=== PATIENT | female | born 1975 | race Caucasian/White ===

== ENCOUNTER 2017-09-13 11:51 | Emergency (ER) | payer OTHER ==
[2017-09-13 12:06] VITALS: TEMP 98.7
[2017-09-13] MEDS ORDERED: Sodium Chloride 0.9% 1,000 ML IV STA (12:06)
[2017-09-13 12:39] LABS: ALB/GLOB RATIO 1.4 (1.1-1.8); ALKALINE PHOSPHATASE 50 U/L (38-126); ALT/SGPT 33 U/L (7-56); AST/SGOT 24 U/L (14-36); BILIRUBIN,TOTAL 0.7 mg/dL (0.2-1.3); BLOOD UREA NITROGEN 14 mg/dL (7-21); CALCIUM 9.8 mg/dL (8.4-10.5); CARBON DIOXIDE 25 mmol/L (21-33); CHLORIDE 107 mmol/L (98-107); GFR AFRICAN-AMERICAN > 60; GLUCOSE,RANDOM 121 mg/dL (70-110); LIPASE 83 U/L (23-300); POTASSIUM 3.6 mmol/L (3.6-5.0); SODIUM 143 mmol/L (132-148); TOTAL PROTEIN 7.8 g/dL (5.8-8.3)
[2017-09-13 12:43] LABS: BASO # 0.05 K/mm3 (0.0-2.0); BASO % 0.6 % (0.0-3.0); EOS % 0.5 % (1.5-5.0); GRAN # 6.58 (1.4-6.5); HEMATOCRIT 39.9 % (36.0-48.0); LYMPH # 1.1 (1.2-3.4); LYMPH % 13.5 % (22.0-35.0); MEAN CELL VOLUME 95.5 fl (80.0-105.0); MEAN CORPUSCULAR HEMOGLOBIN 31.3 pg (25.0-35.0); MEAN CORPUSCULAR HGB CONC 32.8 g/dl (31.0-37.0); MONO # 0.3 (0.1-0.6); MONO % 3.4 % (1.0-6.0); RED CELL DISTRIBUTION WIDTH 12.6 % (11.5-14.5)
[2017-09-13 12:44] LABS: URINE BILIRUBIN NEGATIVE (NEGATIVE); URINE BLOOD LARGE (NEGATIVE); URINE GLUCOSE (UA) NEGATIVE (NEGATIVE); URINE KETONE NEGATIVE (NEGATIVE); URINE LEUKOCYTE ESTERASE NEGATIVE Leu/uL (NEGATIVE); URINE PROTEIN 100 mg/dL (<30 mg/dL)
[2017-09-13 12:46] LABS: URINE APPEARANCE SL CLOUDY (CLEAR); URINE COLOR YELLOW (YELLOW)
--- NOTE | 2017-09-13 12:51 | ED PDOC ---
Arrival/HPI - General Chief Complaint: Back Pain Time Seen by Provider: 09/13/17 12:01 Historian: Patient - History of Present Illness Narrative History of Present Illness (Text): 09/13/17 12:50 A 42 year old female presents to the emergency department complaining of right sided flank pain, nausea and vomiting. Patient reports flank pain radiates to her lower abdomen. Patient denies any other complaints at this time. Symptom Onset: Sudden Symptom Course: Unchanged Activities at Onset: Rest Context: Home Past Medical History - Provider Review Nursing Documentation Reviewed: Yes - Cardiac Hx Cardiac Disorders: Yes ("heart condition", unable to specify) - Pulmonary Hx Respiratory Disorders: No - Neurological Hx Neurological Disorder: No - HEENT Hx HEENT Disorder: No - Renal Hx Renal Disorder: No - Endocrine/Metabolic Hx Endocrine Disorders: No - Hematological/Oncological Hx Blood Disorders: No - Integumentary Hx Dermatological Disorder: No - Musculoskeletal/Rheumatological Hx Musculoskeletal Disorders: No Hx Arthritis: No - Gastrointestinal Hx Gastrointestinal Disorders: No - Genitourinary/Gynecological Hx Genitourinary Disorders: No - Psychiatric Hx Psychophysiologic Disorder: No Hx Substance Use: No Family/Social History - Physician Review Nursing Documentation Reviewed: Yes Family/Social History: No Known Family HX Smoking Status: Never Smoked Hx Alcohol Use: No Hx Substance Use: No Allergies/Home Meds Allergies/Adverse Reactions: Allergies No Known Allergies Allergy (Verified 04/01/17 15:46) Review of Systems - Physician Review All systems were reviewed & negative as marked: Yes - Review of Systems Gastrointestinal: Abdominal Pain (lower), Nausea, Vomiting Musculoskeletal: Other (R sided flank pain) Physical Exam Vital Signs Reviewed: Yes Vital Signs Temp Pulse Resp BP Pulse Ox 09/13/17 16:04 74 17 108/68 98 09/13/17 13:23 78 17 114/72 100 09/13/17 12:06 98.7 F 72 16 143/80 100 Temperature: Afebrile Blood Pressure: Normal Pulse: Regular Respiratory Rate: Normal Appearance: Positive for: Well-Appearing, Non-Toxic, Comfortable Pain Distress: Mild Mental Status: Positive for: Alert and Oriented X 3 - Systems Exam Head: Present: Atraumatic, Normocephalic Pupils: Present: PERRL Extroacular Muscles: Present: EOMI Conjunctiva: Present: Normal Mouth: Present: Moist Mucous Membranes Neck: Present: Normal Range of Motion Respiratory/Chest: Present: Clear to Auscultation, Good Air Exchange. No: Respiratory Distress, Accessory Muscle Use Cardiovascular: Present: Regular Rate and Rhythm, Normal S1, S2. No: Murmurs Abdomen: Present: Tenderness (R flank), Normal Bowel Sounds, Other (lower abdominal pain b/l). No: Distention, Peritoneal Signs Back: Present: Other (R flank tenderness) Upper Extremity: Present: Normal Inspection. No: Cyanosis, Edema Lower Extremity: Present: Normal Inspection. No: Edema Neurological: Present: GCS=15, CN II-XII Intact, Speech Normal Skin: Present: Warm, Dry, Normal Color. No: Rashes Psychiatric: Present: Alert, Oriented x 3, Normal Insight, Normal Concentration Medical Decision Making ED Course and Treatment: 09/13/17 12:48 Impression: A 42 year old female with right sided flank pain, lower abdominal pain, nausea and vomiting. Differential Diagnosis included but are not limited to: kidney stones vs. pyelonephritis vs. appendicitis vs. gastritis Plan: -- CT abd/pelvis -- labs -- Urinalysis -- IV fluids, Toradol, Zofran -- Reassess and disposition Progress Notes: 09/13/17 13:52 CT Abdomen and Pelvis without intravenous contrast Creator : Justin Subramanian MD FINDINGS: LOWER THORAX: Unremarkable. LIVER: Unremarkable. No gross lesion or ductal dilatation. GALLBLADDER AND BILE DUCTS: Unremarkable. PANCREAS: Unremarkable. No gross lesion or ductal dilatation. SPLEEN: Unremarkable. ADRENALS: Unremarkable. No mass. KIDNEYS AND URETERS: There is a 3 mm right UVJ stone. There is moderate to severe hydronephrosis and hydroureter on the right. Axial image 150 series 2 and coronal image 47. VASCULATURE: Unremarkable. No aortic aneurysm. BOWEL: Unremarkable. No obstruction. No gross mural thickening. APPENDIX: Unremarkable. Normal appendix. PERITONEUM: Unremarkable. No free fluid. No free air. LYMPH NODES: Unremarkable. No enlarged lymph nodes. BLADDER: Unremarkable. REPRODUCTIVE: Unremarkable. BONES: No acute fracture. IMPRESSION: There is a 3 mm right UVJ stone. There is moderate to severe hydronephrosis and hydroureter on the right 09/13/17 14:00 On reevaluation, patient still with persistent pain. Will give more pain medications. 09/13/17 15:43 Patient feels better and is in no acute distress. Discussed results and plan with patient. Patient understands results and is agreeable with plan to be discharged home. All questions answered. Patient is stable for discharge. - Lab Interpretations Lab Results: 09/13/17 11:21 09/13/17 11:21 Lab Results 09/13/17 12:35: Urine Color Yellow, Urine Appearance Sl cloudy, Urine pH 6.0, Ur Specific [place] >= 1.030, Urine Protein 100 H, Urine Glucose (UA) Negative, Urine Ketones Negative, Urine Blood Large H, Urine Nitrate Negative, Urine Bilirubin Negative, Urine Urobilinogen 1.0 H, Ur Leukocyte Esterase Negative, Urine RBC 25 - 30, Urine WBC 1 - 3, Ur Epithelial Cells 4 - 5, Amorphous Sediment Few, Urine Bacteria Many, Urine Other Uyeast, Urine HCG, Qual Negative 09/13/17 11:21: Sodium 143, Potassium 3.6, Chloride 107, Carbon Dioxide 25, Anion Gap 15, BUN 14, Creatinine 0.7, Est GFR ( Amer) > 60, Est GFR (Non- Af Amer) > 60, Random Glucose 121 H, Calcium 9.8, Total Bilirubin 0.7, AST 24, ALT 33, Alkaline Phosphatase 50, Total Protein 7.8, Albumin 4.5, Globulin 3.3, Albumin/Globulin Ratio 1.4, Lipase 83 09/13/17 11:21: WBC 8.0, RBC 4.18, Hgb 13.1, Hct 39.9, MCV 95.5, MCH 31.3, MCHC 32.8, RDW 12.6, Plt Count 238, MPV 9.0, Gran % 82.0 H, Lymph % (Auto) 13.5 L, Roberts % (Auto) 3.4, Eos % (Auto) 0.5 L, Baso % (Auto) 0.6, Gran # 6.58 H, Lymph # 1.1 L, Roberts # 0.3, Eos # 0.0, Baso # 0.05 I have reviewed the lab results: Yes - RAD Interpretation Radiology Orders: 09/13/17 12:07 ABD & PELVIS W/O PO OR IV CONT [CT] Stat - Medication Orders Current Medication Orders: Discontinued Medications Hydromorphone HCl (Dilaudid) 1 mg IVP STAT STA Stop: 09/13/17 14:11 Last Admin: 09/13/17 14:15 Dose: 1 mg MAR Pain Assessment Document 09/13/17 14:15 OCS (Rec: 09/13/17 14:16 OCS [id number]) Pain Reassessment Is this a pain reassessment? Yes Sleep Is patient sleeping during reassessment? No Presence of Pain Presence of Pain Yes Pain Scale Used Pain Scale Used Numeric Location Left, Right or Bilateral Right Description Description Constant Pain Behavior Moaning Crying Guarding IVP Administration Document 09/13/17 14:15 OCS (Rec: 09/13/17 14:16 OCS [id number]) Charges for Administration # of IVP Administrations 1 Sodium Chloride (Sodium Chloride 0.9%) 1,000 mls @ 100 mls/hr IV .Q10H STA Stop: 09/13/17 22:05 Last Admin: 09/13/17 12:39 Dose: 100 mls/hr eMAR Start Stop Document 09/13/17 12:39 OCS (Rec: 09/13/17 12:40 OCS [id number]) Intravenous Solution Start Date 09/13/17 Start Time 12:40 Ketorolac Tromethamine (Toradol) 30 mg IVP STAT STA Stop: 09/13/17 12:07 Last Admin: 09/13/17 12:39 Dose: 30 mg MAR Pain Assessment Document 09/13/17 12:39 OCS (Rec: 09/13/17 12:39 OCS [id number]) Pain Reassessment Is this a pain reassessment? Yes Sleep Is patient sleeping during reassessment? No Presence of Pain Presence of Pain Yes Pain Scale Used Pain Scale Used Numeric Location Left, Right or Bilateral Right Description Description Constant Intensity of Pain at present 10 IVP Administration Document 09/13/17 12:39 OCS (Rec: 09/13/17 12:39 OCS [id number]) Charges for Administration # of IVP Administrations 1 Ondansetron HCl (Zofran Inj) 4 mg IVP STAT STA Stop: 09/13/17 12:07 Last Admin: 09/13/17 12:39 Dose: 4 mg IVP Administration Document 09/13/17 12:39 OCS (Rec: 09/13/17 12:39 OCS [id number]) Charges for Administration # of IVP Administrations 1 - Scribe Statement The provider has reviewed the documentation as recorded by the Scribe Krishna Barnes All medical record entries made by the Scribe were at my direction and personally dictated by me. I have reviewed the chart and agree that the record accurately reflects my personal performance of the history, physical exam, medical decision making, and the department course for this patient. I have also personally directed, reviewed, and agree with the discharge instructions and disposition. Disposition/Present on Arrival - Present on Arrival Any Indicators Present on Arrival: No History of DVT/PE: No History of Uncontrolled Diabetes: No Urinary Catheter: No History of Decub. Ulcer: No History Surgical Site Infection Following: None - Disposition Have Diagnosis and Disposition been Completed?: Yes Diagnosis: Kidney stone Disposition: HOME/ ROUTINE Disposition Time: 16:10 Condition: IMPROVED Discharge Instructions (ExitCare): Kidney Stones (ED) Prescriptions: Ondansetron ODT [Zofran ODT] 4 mg PO TID PRN 7 Days #12 odt PRN Reason: Nausea/Vomiting oxyCODONE/Acetaminophen [Percocet 5/325 mg Tab] 1 ea PO TID PRN #15 tab PRN Reason: Pain, Moderate (4-7) Tamsulosin HCl [Flomax] 0.4 mg PO DAILY #15 cap.er.24h Forms: [facility] ([place]an)
[2017-09-13 13:24] VITALS: RESP 17
[2017-09-13 13:31] LABS: URINE AMORPHOUS SEDIMENT FEW; URINE BACTERIA MANY (NEG); URINE RBC 25 - 30 /hpf (0-2)
--- NOTE | 2017-09-13 13:50 | CT ---
PROCEDURE: CT Abdomen and Pelvis without intravenous contrast HISTORY: kidney stones COMPARISON: None. TECHNIQUE: Without contrast.. Contrast Dose: Radiation dose: Total exam DLP = 318 mGy-cm. This CT exam was performed using one or more of the following dose reduction techniques: Automated exposure control, adjustment of the mA and/or kV according to patient size, and/or use of iterative reconstruction technique. FINDINGS: LOWER THORAX: Unremarkable. LIVER: Unremarkable. No gross lesion or ductal dilatation. GALLBLADDER AND BILE DUCTS: Unremarkable. PANCREAS: Unremarkable. No gross lesion or ductal dilatation. SPLEEN: Unremarkable. ADRENALS: Unremarkable. No mass. KIDNEYS AND URETERS: There is a 3 mm right UVJ stone. There is moderate to severe hydronephrosis and hydroureter on the right. Axial image 150 series 2 and coronal image 47. VASCULATURE: Unremarkable. No aortic aneurysm. BOWEL: Unremarkable. No obstruction. No gross mural thickening. APPENDIX: Unremarkable. Normal appendix. PERITONEUM: Unremarkable. No free fluid. No free air. LYMPH NODES: Unremarkable. No enlarged lymph nodes. BLADDER: Unremarkable. REPRODUCTIVE: Unremarkable. BONES: No acute fracture. OTHER FINDINGS: None. IMPRESSION: There is a 3 mm right UVJ stone. There is moderate to severe hydronephrosis and hydroureter on the right
[2017-09-13] MEDS ORDERED: HYDROmorphone 1 mg/ml ISec IVP STA (14:10)
[2017-09-13 16:05] VITALS: BP 108/68; PULSE 74; O2SAT 98
== END 2017-09-13 16:10 | disposition home or self-care (01) ==
LOC: ED 11:51 → MERGE 11:51 → ED 16:10
DX: N20.0 Calculus of kidney (principal)
CPT/HCPCS: 74176; 80053; 81001; 83690; 84703; 85025; 96374; 96375; 99283; J1170; J1885; J2405; J7040

== ENCOUNTER 2018-04-22 19:06 | Emergency (ER) | payer OTHER ==
[2018-04-22 19:40] VITALS: BMI 24.9
[2018-04-22 19:44] VITALS: RESP 18; TEMP 97.8
--- NOTE | 2018-04-22 20:34 | ED PDOC ---
Arrival/HPI - General Chief Complaint: Back Pain Time Seen by Provider: 04/22/18 20:14 Historian: Patient - History of Present Illness Narrative History of Present Illness (Text): 04/22/18 20:26 42yo female with no pmhx who present with complaint of lower back pain s/p trauma yesterday. States she tripped and fall yesterday. She came to ED today because of the persistent pain. She did not take any medication for the pain. She describes pain as crampy, worse with movement. She denies focal weakness, urinary/fecal incontinence, saddle anesthesia, abdominal pain, LOC, headache, any other complaint. Past Medical History - Provider Review Nursing Documentation Reviewed: Yes - Infectious Disease Hx of Infectious Diseases: None - Cardiac Hx Cardiac Disorders: Yes ("heart condition", unable to specify) - Pulmonary Hx Respiratory Disorders: No - Neurological Hx Neurological Disorder: No - HEENT Hx HEENT Disorder: No - Renal Hx Renal Disorder: No Hx Kidney Stones: Yes - Endocrine/Metabolic Hx Endocrine Disorders: No - Hematological/Oncological Hx Blood Disorders: No - Integumentary Hx Dermatological Disorder: No - Musculoskeletal/Rheumatological Hx Musculoskeletal Disorders: No Hx Arthritis: No - Gastrointestinal Hx Gastrointestinal Disorders: No - Genitourinary/Gynecological Hx Genitourinary Disorders: No - Psychiatric Hx Psychophysiologic Disorder: No Hx Substance Use: No - Anesthesia Hx Anesthesia: No Hx Anesthesia Reactions: No Family/Social History - Physician Review Nursing Documentation Reviewed: Yes Family/Social History: Unknown Family HX Smoking Status: Never Smoked Hx Alcohol Use: No Hx Substance Use: No Allergies/Home Meds Allergies/Adverse Reactions: Allergies No Known Allergies Allergy (Verified 04/01/17 15:46) Review of Systems - Physician Review All systems were reviewed & negative as marked: Yes - Review of Systems Constitutional: Normal Eyes: Normal ENT: Normal Respiratory: Normal Cardiovascular: Normal Gastrointestinal: Normal Genitourinary Female: Normal Musculoskeletal: Back Pain Skin: Normal Neurological: Normal Endocrine: Normal Hemo/Lymphatic: Normal Psychiatric: Normal Physical Exam Vital Signs Reviewed: Yes Vital Signs Temp Pulse Resp BP Pulse Ox 04/22/18 19:42 97.8 F 74 18 104/74 97 Temperature: Afebrile Blood Pressure: Normal Pulse: Regular Respiratory Rate: Normal Appearance: Positive for: Well-Appearing, Non-Toxic, Comfortable Pain Distress: None Mental Status: Positive for: Alert and Oriented X 3 - Systems Exam Head: Present: Atraumatic, Normocephalic Pupils: Present: PERRL Extroacular Muscles: Present: EOMI Conjunctiva: Present: Normal Mouth: Present: Moist Mucous Membranes Neck: Present: Normal Range of Motion Respiratory/Chest: Present: Clear to Auscultation, Good Air Exchange. No: Respiratory Distress, Accessory Muscle Use Cardiovascular: Present: Regular Rate and Rhythm, Normal S1, S2. No: Murmurs Abdomen: No: Tenderness, Distention, Peritoneal Signs Back: Present: Midline Tenderness, Paraspinal Tenderness (Paralumbar tenderness) , Pain with Leg Raise (right leg) Upper Extremity: Present: Normal Inspection. No: Cyanosis, Edema Lower Extremity: Present: Normal Inspection. No: Edema Neurological: Present: GCS=15, CN II-XII Intact, Speech Normal Skin: Present: Warm, Dry, Normal Color. No: Rashes Psychiatric: Present: Alert, Oriented x 3, Normal Insight, Normal Concentration Medical Decision Making ED Course and Treatment: 04/22/18 23:11 LS xray -No acute fracture Result was DW the pt. Her pain was controlled in ED with medication. She was ambulatory and neurologically intact in ED. Result was DW the pt. She was Dc home with lidoderm, flexeril and advised to take Tylenol or ibuprofen. Referred to her PMD - RAD Interpretation Radiology Orders: 04/22/18 20:15 LS SPINE WITH OBL > 18 YRS OLD [RAD] Stat - Medication Orders Current Medication Orders: Discontinued Medications Cyclobenzaprine HCl (Flexeril) 10 mg PO STAT STA Stop: 04/22/18 20:17 Last Admin: 04/22/18 20:56 Dose: 10 mg Ketorolac Tromethamine (Toradol) 60 mg IM STAT STA Stop: 04/22/18 20:17 Last Admin: 04/22/18 20:56 Dose: 60 mg MAR Pain Assessment Document 04/22/18 20:56 CHANEL (Rec: 04/22/18 20:57 CHANEL [id number]) Pain Reassessment Is this a pain reassessment? No IM Administration Charges Document 04/22/18 20:56 CHANEL (Rec: 04/22/18 20:57 CHANEL [id number]) Charges for Administration # of IM Administrations 1 Disposition/Present on Arrival - Present on Arrival Any Indicators Present on Arrival: No History of DVT/PE: No History of Uncontrolled Diabetes: No Urinary Catheter: No History of Decub. Ulcer: No History Surgical Site Infection Following: None - Disposition Have Diagnosis and Disposition been Completed?: Yes Diagnosis: Back pain Disposition: HOME/ ROUTINE Disposition Time: 22:55 Patient Plan: Discharge Patient Problems: Current Active Problems Problem Status Onset Back pain Acute Condition: STABLE Discharge Instructions (ExitCare): Low Back Pain in Adults Additional Instructions: Follow up with your doctor Return to ED for any new or worsening symptoms Prescriptions: Cyclobenzaprine [Cyclobenzaprine HCl] 10 mg PO TID #10 tab Lidocaine 5% [Lidoderm] 1 patch TOP BID #10 patch Referrals: FAMILY PROVIDER,NO [Primary Care Provider] - Follow up with primary Forms: [employer] (Bel[place]ian)
[2018-04-22 23:31] VITALS: BP 122/79; PULSE 64; O2SAT 98
--- NOTE | 2018-04-23 09:52 | RAD ---
PROCEDURE: Radiographs of the Lumbar Spine. HISTORY: back pain s/p trauma COMPARISON: No prior. FINDINGS: BONES: No evidence of acute compression nor retropulsed fragments. Straightening of the normal cervical lordosis DISC SPACES: Disc space heights relatively maintained. Multilevel small marginal anterior osteophyte formation OTHER FINDINGS: None. IMPRESSION: No acute compression fractures.
== END 2018-04-22 23:31 | disposition home or self-care (01) ==
LOC: ED 19:06
DX: M54.5 Low back pain (principal)
CPT/HCPCS: 72110; 96372; 99282; J1885

== ENCOUNTER 2018-05-26 18:16 | Emergency (ER) | payer OTHER ==
[2018-05-26 18:19] VITALS: BMI 27.4
[2018-05-26 18:21] VITALS: RESP 18; TEMP 98.5
--- NOTE | 2018-05-26 18:52 | ED PDOC ---
Arrival/HPI - General Chief Complaint: Abdominal Pain Time Seen by Provider: 05/26/18 18:46 Historian: Patient, Family EM Caveat: Language Barrier (Irish) - History of Present Illness Narrative History of Present Illness (Text): 05/26/18 18:46 Pt is a 42 yr old female who presents to the ED complaining of abdominal pain and distension, constipation, and back pain for the past 2 weeks. Reports diffuse abdominal pain that wraps around laterally to the back as well as intrascapular. Describes the abdomen as distended and has very little appetite. Denies fever, chest pain, shortness of breath, nausea, vomiting, diarrhea, recent travel or any other complaints. 05/26/18 20:01 Time/Duration: < month Symptom Onset: Sudden Symptom Course: Unchanged Quality: Aching Severity Level: 8 Activities at Onset: Rest, Light Context: Home Past Medical History - Provider Review Nursing Documentation Reviewed: Yes - Travel History Have you recently traveled outside [place] w/in the past 3 mons?: No - Infectious Disease Hx of Infectious Diseases: None - Cardiac Hx Cardiac Disorders: Yes ("heart condition", unable to specify) - Pulmonary Hx Respiratory Disorders: No - Neurological Hx Neurological Disorder: No - HEENT Hx HEENT Disorder: No - Renal Hx Renal Disorder: No Hx Kidney Stones: Yes - Endocrine/Metabolic Hx Endocrine Disorders: No - Hematological/Oncological Hx Blood Disorders: No - Integumentary Hx Dermatological Disorder: No - Musculoskeletal/Rheumatological Hx Musculoskeletal Disorders: No Hx Arthritis: No - Gastrointestinal Hx Gastrointestinal Disorders: No - Genitourinary/Gynecological Hx Genitourinary Disorders: No - Psychiatric Hx Psychophysiologic Disorder: No Hx Substance Use: No - Anesthesia Hx Anesthesia: No Hx Anesthesia Reactions: No Family/Social History - Physician Review Nursing Documentation Reviewed: Yes Family/Social History: Unknown Family HX Smoking Status: Never Smoked Hx Alcohol Use: No Hx Substance Use: No Allergies/Home Meds Allergies/Adverse Reactions: Allergies No Known Allergies Allergy (Verified 04/01/17 15:46) Review of Systems - Review of Systems Constitutional: Normal Eyes: Normal ENT: Normal Respiratory: Normal. absent: Cough Cardiovascular: Normal. absent: Chest Pain Gastrointestinal: Normal, Abdominal Pain, Stool Changes, Constipation, Nausea, Appetite Changes. absent: Diarrhea, Vomiting Genitourinary Female: Normal. absent: Dysuria, Frequency Musculoskeletal: Normal, Back Pain, Neck Pain Skin: Normal Neurological: Normal. absent: Headache, Dizziness Endocrine: Normal Hemo/Lymphatic: Normal Psychiatric: Normal Physical Exam Vital Signs Reviewed: Yes Vital Signs Temp Pulse Resp BP Pulse Ox 05/26/18 22:00 85 18 120/85 100 05/26/18 18:20 98.5 F 86 18 114/76 96 Temperature: Afebrile Blood Pressure: Normal Pulse: Regular Respiratory Rate: Normal Appearance: Positive for: Well-Appearing, Non-Toxic, Comfortable Pain Distress: Moderate Mental Status: Positive for: Alert and Oriented X 3 - Systems Exam Head: Present: Atraumatic, Normocephalic Pupils: Present: PERRL Extroacular Muscles: Present: EOMI Conjunctiva: Present: Normal Mouth: Present: Moist Mucous Membranes Neck: Present: Normal Range of Motion Respiratory/Chest: Present: Clear to Auscultation, Good Air Exchange. No: Respiratory Distress, Accessory Muscle Use Cardiovascular: Present: Regular Rate and Rhythm, Normal S1, S2. No: Murmurs Abdomen: Present: Tenderness (diffuse), Distention, Normal Bowel Sounds. No: Peritoneal Signs, Rebound, Guarding, McBurney's Point Tender, Rovsing's Sign Present Back: Present: CVA Tenderness, Paraspinal Tenderness, Pain with Leg Raise Upper Extremity: Present: Normal Inspection, Normal ROM, NORMAL PULSES, Capillary Refill < 2s. No: Cyanosis, Edema Lower Extremity: Present: Normal Inspection. No: Edema Neurological: Present: GCS=15, CN II-XII Intact, Speech Normal, Motor Func Grossly Intact, Gait Normal Skin: Present: Warm, Dry, Normal Color. No: Rashes Psychiatric: Present: Alert, Oriented x 3, Normal Insight, Normal Concentration Medical Decision Making ED Course and Treatment: 05/26/18 18:52 Pt is a 42 yr old female who presents to the ED complaining of abdominal pain and distension, constipation, and back pain for the past 2 weeks. Working Dx: cholecystitis vs appendicitis vs aortic dissection Plan labs UA CT with Iv contrast assess and dispo Progress note 05/26/18 20:04 labs wnl UA reveals leuk esterase or sml white ct; many bacteria CT results still pending pt resting comfortably 05/26/18 21:14 Macrobid PO STAT will send home with 100mg PO bid x 7 days 05/26/18 21:56 IMPRESSION: 1. Normal appendix. 2. Mild fecal retention in the colon consistent with constipation. 05/27/18 01:35 Advised to f/u with PMD in 2 days Take Colace daily along with plenty of fluids VSS on d/c - Lab Interpretations Lab Results: 05/26/18 18:55 05/26/18 18:55 Lab Results 05/26/18 19:14: Urine Color Yellow, Urine Appearance Clear, Urine pH 7.0, Ur Specific [place] 1.020, Urine Protein Negative, Urine Glucose (UA) Negative, Urine Ketones Negative, Urine Blood Moderate H, Urine Nitrate Negative, Urine Bilirubin Negative, Urine Urobilinogen 0.2, Ur Leukocyte Esterase Trace H, Urine RBC 15 - 20, Urine WBC 2 - 5, Ur Epithelial Cells 4 - 5, Urine Bacteria Many 05/26/18 18:55: Sodium 143, Potassium 3.8, Chloride 107, Carbon Dioxide 27, Anion Gap 13, BUN 15, Creatinine 0.7, Est GFR ( Amer) > 60, Est GFR (Non- Af Amer) > 60, Random Glucose 89, Calcium 9.1, Magnesium 2.1, Total Bilirubin 0.3, AST 20, ALT 29, Alkaline Phosphatase 43, Total Protein 6.9, Albumin 4.0, Globulin 3.0, Albumin/Globulin Ratio 1.3, Amylase 82, Lipase 113 05/26/18 18:55: PT 12.1, INR 1.06, APTT 26.7 05/26/18 18:55: WBC 5.8 D, RBC 4.06, Hgb 12.5, Hct 37.4, MCV 92.1 D, MCH 30.8 , MCHC 33.4, RDW 12.4, Plt Count 229, MPV 8.7, Gran % 40.3 L, Lymph % (Auto) 47.7 H, [place] % (Auto) 7.2 H, Eos % (Auto) 3.4, Baso % (Auto) 1.4, Gran # 2.34, Lymph # (Auto) 2.8, [place] # (Auto) 0.4, Eos # (Auto) 0.2, Baso # (Auto) 0.08 - RAD Interpretation Narrative RAD Interpretations (Text): 05/26/18 21:56 EXAM: CT Abdomen and Pelvis With Intravenous Contrast CLINICAL HISTORY: 42 years old, female; Pain; Abdominal pain; Additional info: R /O appy or jami TECHNIQUE: Axial computed tomography images of the abdomen and pelvis with intravenous contrast. All CT scans at this facility use at least one of these dose optimization techniques: automated exposure control; mA and/or kV adjustment per patient size (includes targeted exams where dose is matched to clinical indication); or iterative reconstruction. CONTRAST: 92 mL of omni 350 was administered intravenously. COMPARISON: CT - ABD PELVIS W/O PO OR IV CONT 2017-09-13 13:07 FINDINGS: Lung bases: Unremarkable. No mass. No consolidation. ABDOMEN: Liver: Small low-attenuation foci in the liver which are likely due to cysts but are too small to characterize. Gallbladder and bile ducts: Unremarkable. No calcified stones. No ductal dilation. Pancreas: Unremarkable. No mass. No ductal dilation. Spleen: Unremarkable. No splenomegaly. Adrenals: Unremarkable. No mass. Kidneys and ureters: Unremarkable. No solid mass. No hydronephrosis. Stomach and bowel: Mild fecal retention in the colon consistent with constipation. No obstruction. No mucosal thickening. PELVIS: Appendix: Normal appendix. Bladder: Unremarkable. No mass. Reproductive: Unremarkable as visualized. ABDOMEN and PELVIS: MAYJASON JIMÉNEZ | Preliminary Radiology Report VP PACKAGING (QA) DISCREPANCY? If there is a discrepancy between the preliminary and final interpretation, please notify [employer] via [email or web address]. If you do not have access to our QA portal, call our QA team at [phone] CONFIDENTIALITY STATEMENT This report is intended only for the use of the referring physician, and only in accordance with law, If you received this in error, call [phone] Page 2 of 2 Intraperitoneal space: Unremarkable. No free air. No significant fluid collection. Bones/joints: No acute fracture. No dislocation. Soft tissues: Unremarkable. Vasculature: Unremarkable. No abdominal aortic aneurysm. Lymph nodes: Unremarkable. No enlarged lymph nodes. IMPRESSION: 1. Normal appendix. 2. Mild fecal retention in the colon consistent with constipation. Radiology Orders: 05/26/18 18:54 ABD & PELVIS IV CONTRAST ONLY [CT] Stat - EKG Interpretation Interpreted by ED Physician: Yes (nsr; No ST or T-wave abnormalities; rate 65) - Medication Orders Current Medication Orders: Discontinued Medications Nitrofurantoin Macrocrystals (Macrobid) 100 mg PO STAT STA PRN Reason: Protocol Stop: 05/26/18 20:17 Last Admin: 05/26/18 20:46 Dose: 100 mg Pantoprazole Sodium (Protonix Inj) 40 mg IVP STAT STA Stop: 05/26/18 18:55 Last Admin: 05/26/18 19:18 Dose: 40 mg IVP Administration Document 05/26/18 19:18 AD (Rec: 05/26/18 19:18 AD [id number]) Charges for Administration # of IVP Administrations 1 Disposition/Present on Arrival - Present on Arrival Any Indicators Present on Arrival: Yes History of DVT/PE: No History of Uncontrolled Diabetes: No Urinary Catheter: No History of Decub. Ulcer: No History Surgical Site Infection Following: None - Disposition Have Diagnosis and Disposition been Completed?: Yes Diagnosis: UTI (urinary tract infection), Weakness of left side of body, Anxiety, Constipation by delayed colonic transit Disposition: HOME/ ROUTINE Disposition Time: 21:16 Patient Plan: Discharge Condition: STABLE Discharge Instructions (ExitCare): Urinary Tract Infections in Adults Additional Instructions: JASON RIVERO, thank you for letting us take care of you today. Your provider was Fabián Santana DO and MONTRELL Petty and you were treated for ABDOMINAL / BACK PAIN. The emergency medical care you received today was directed at your acute symptoms. If you were prescribed any medication, please fill it and take as directed. It may take several days for your symptoms to resolve. Return to the Emergency Department if your symptoms worsen, do not improve, or if you have any other problems. PLEASE SEE YOUR PRIMARY CARE DOCTOR IN 2 DAYS FOR FOLLOW UP; TAKE THE ANTIBIOTIC DIRECTED FOR THE URINARY TRACT INFECTION Please contact your doctor or call one of the physicians/clinics you have been referred to that are listed on the Patient Visit Information form that is included in your discharge packet. Bring any paperwork you were given at discharge with you along with any medications you are taking to your follow up visit. Our treatment cannot replace ongoing medical care by a primary care provider outside of the emergency department. Thank you for allowing the [facility] team to be part of your care today. If you had an X-Ray or CT scan: A Radiologist will review the ED reading if any change in treatment is needed we will contact you. If you had a blood, urine, or wound culture: It will take several days for the results, if any change in treatment is needed we will contact you. If you had an STI test: It will take 48 hours for the results. Please call after 1 week if you have not heard back. Prescriptions: Docusate Sodium [Colace] 100 mg PO BID #10 capsule Nitrofurantoin Macrocrystals [Macrobid] 100 mg PO BID 7 Days #14 cap Referrals: FAMILY PROVIDER,NO [Primary Care Provider] - Follow up with primary Forms: [facility] (Kiswahili)
[2018-05-26 19:18] LABS: BASO # 0.08 K/mm3 (0.0-2.0); BASO % 1.4 % (0.0-3.0); EOS # 0.2 (0.0-0.7); EOS % 3.4 % (1.5-5.0); GRAN # 2.34 (1.4-6.5); GRAN % 40.3 % (50.0-68.0); HEMOGLOBIN 12.5 g/dL (12.0-16.0); LYMPH # 2.8 (1.2-3.4); LYMPH % 47.7 % (22.0-35.0); MEAN CELL VOLUME 92.1 fl (80.0-105.0); MEAN CORPUSCULAR HEMOGLOBIN 30.8 pg (25.0-35.0); MEAN CORPUSCULAR HGB CONC 33.4 g/dl (31.0-37.0); MEAN PLATELET VOLUME 8.7 fl (7.0-11.0); MONO # 0.4 (0.1-0.6); MONO % 7.2 % (1.0-6.0); RBC 4.06 10^6/uL (3.5-6.1); RED CELL DISTRIBUTION WIDTH 12.4 % (11.5-14.5); WHITE BLOOD COUNT 5.8 10^3/ul (4.5-11.0)
[2018-05-26 19:24] LABS: ALB/GLOB RATIO 1.3 (1.1-1.8); ALT/SGPT 29 U/L (7-56); AMYLASE 82 U/L (35-125); AST/SGOT 20 U/L (14-36); BLOOD UREA NITROGEN 15 mg/dL (7-21); CALCIUM 9.1 mg/dL (8.4-10.5); GFR AFRICAN-AMERICAN > 60; GFR NON-AFRICAN AMERICAN > 60; LIPASE 113 U/L (23-300)
[2018-05-26 19:35] LABS: URINE BILIRUBIN NEGATIVE (NEGATIVE); URINE BLOOD MODERATE (NEGATIVE); URINE COLOR YELLOW (YELLOW); URINE GLUCOSE (UA) NEGATIVE (NEGATIVE); URINE LEUKOCYTE ESTERASE TRACE Leu/uL (NEGATIVE); URINE PROTEIN NEGATIVE mg/dL (<30 mg/dL); URINE UROBILINOGEN 0.2 E.U./dL (<1 E.U./dL)
[2018-05-26 19:35] LABS: INR 1.06 (0.93-1.08); PARTIAL THROMBOPLASTIN TIME 26.7 Seconds (25.1-36.5); PROTHROMBIN TIME 12.1 SECONDS (9.4-12.5)
[2018-05-26 19:36] LABS: URINE APPEARANCE CLEAR (CLEAR)
[2018-05-26 19:40] LABS: URINE BACTERIA MANY (NEG); URINE RBC 15 - 20 /hpf (0-2)
[2018-05-26] MEDS ORDERED: Iohexol 350 MG/100 ML VIAL ONE (19:42)
[2018-05-26 22:07] VITALS: BP 120/85; PULSE 85; O2SAT 100
--- NOTE | 2018-05-27 10:47 | CT ---
Date of service: 05/26/2018 PROCEDURE: CT Abdomen and Pelvis with contrast HISTORY: R/O appy or jami COMPARISON: None. TECHNIQUE: Contrast dose: 100 cc of Omni 350 Radiation dose: Total exam DLP = 391 mGy-cm. This CT exam was performed using one or more of the following dose reduction techniques: Automated exposure control, adjustment of the mA and/or kV according to patient size, and/or use of iterative reconstruction technique. FINDINGS: LOWER THORAX: Unremarkable. LIVER: Unremarkable. No gross lesion or ductal dilatation. GALLBLADDER AND BILE DUCTS: Unremarkable. PANCREAS: Unremarkable. No gross lesion or ductal dilatation. SPLEEN: Unremarkable. ADRENALS: Unremarkable. No mass. KIDNEYS AND URETERS: Unremarkable. No hydronephrosis. No solid mass. VASCULATURE: Unremarkable. No aortic aneurysm. BOWEL: Unremarkable. No obstruction. No gross mural thickening. APPENDIX: Normal appendix. PERITONEUM: Unremarkable. No free fluid. No free air. LYMPH NODES: Unremarkable. No enlarged lymph nodes. BLADDER: Unremarkable. REPRODUCTIVE: Unremarkable. BONES: No acute fracture. OTHER FINDINGS: None. IMPRESSION: No acute findings. No evidence of appendicitis Constipation
--- NOTE | 2018-05-27 11:03 | CARD ---
APPROVED REPORT Date of service: 05/26/2018 EKG Measurement Heart [id number] 180P60 [id number] <Conclusion> Normal sinus rhythm Possible Left atrial enlargement
== END 2018-05-26 22:00 | disposition home or self-care (01) ==
LOC: ED 18:16
DX: R53.1 Weakness (principal); N39.0 Urinary tract infection, site not specified; F41.9 Anxiety disorder, unspecified; K59.01 Slow transit constipation
CPT/HCPCS: 74177; 80053; 81001; 82150; 83690; 83735; 85025; 85610; 85730; 87086; 93005; 96374; 99284; C9113; Q9967